=== PATIENT | male | born 1995 | race Caucasian/White ===

== ENCOUNTER 2019-03-07 14:58 | Emergency (ER) | payer BC, MEDICARE ==
[~2019-03-07] VITALS: Ht 185.4 cm; Wt 64.0 kg
[2019-03-07 15:31] VITALS: BP 122/83
--- NOTE | 2019-03-07 15:36 | NUR ---
PT AMB TO ER LOBBY WITH STEADY GAIT. PT [id number]. VSS. BLEEDING CONTROLLED AND DENIES PAIN.
--- NOTE | 2019-03-07 16:05 | NUR ---
PATIENT AMBULATED TO ER BED 4.
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
[2019-03-07] MEDS ORDERED: LIDOCAINE/EPI 2% 1:100000 20 ML VIAL INJ STA (18:38)
--- NOTE | 2019-03-07 18:48 | NUR ---
LIDOCAINE SET AT PT BEDSIDE FOR ERMD TO ADMINISTER
--- NOTE | 2019-03-07 19:12 | NUR ---
RECEIVED REPORT FROM HALINA TOBIN. TRANSFER OF CARE AT THIS TIME.
--- NOTE | 2019-03-07 19:13 | NUR ---
DR. BALL AT BEDSIDE PERFORMING LAC REPAIR.
[2019-03-07 19:38] VITALS: BP 117/80
--- NOTE | 2019-03-07 19:38 | NUR ---
Patient discharged with v/s stable. Written and verbal after care instructions given and explained. Patient alert, oriented and verbalized understanding of instructions. Ambulatory with steady gait. All questions addressed prior to discharge. ID band removed. Patient advised to follow up with PMD. Rx of Ibuprofen, [place] and Keflex given. Patient educated on indication of medication including possible reaction and side effects. Opportunity to ask questions provided and answered.
== END 2019-03-07 19:38 | disposition home or self-care (01) ==
LOC: MED 14:58
DX: S71.112A Laceration without foreign body, left thigh, initial encounter (principal); F12.90 Cannabis use, unspecified, uncomplicated; W27.0XXA Contact with workbench tool, initial encounter; Y93.89 Activity, other specified; Y92.89 Other specified places as the place of occurrence of the external cause; Y99.8 Other external cause status
CPT/HCPCS: 12002; 90471; 90715; 99283; J2001

== ENCOUNTER 2019-03-14 09:46 | Emergency (ER) | payer BC ==
[~2019-03-14] VITALS: Ht 177.8 cm; Wt 64.0 kg
[2019-03-14 09:51] VITALS: BP 122/88
--- NOTE | 2019-03-14 09:55 | NUR ---
pt ambulated to bed 3
--- NOTE | 2019-03-14 10:07 | NUR ---
PT BIB SELF TO THE ED FOR SUTURE REMOVAL. PT HAD SUTURES LAST SUNDAY IN THIS HOSPITAL. SUTURES X7, INTACT. REDNESS AND CRUSTS NOTED ON SUTURE SITE. PT REPORTS HE NOTICED BLOODY DISCHARGE ON THE SITE THIS MORNING. NO PUS OR DISCHARGE NOTED FROM THE SITE NOW. PT TAKING HYDROCODONE, IBUPROFEN AND ANTIBIOTIC SINCE LAST VISIT. REPORTS DIARRHEA SINCE YESTERDAY. D X2 TODAY. DENIES FEVER. DENIES OTHER PROBLEM AT THIS TIME. DENIES PAIN AT THIS TIME.
--- NOTE | 2019-03-14 10:26 | NUR ---
ALAN GEORGE AT [facility] EVALUATING PT.
--- NOTE | 2019-03-14 10:28 | NUR ---
SUTURE REMOVED BY ALAN GEORGE.
[2019-03-14 10:39] VITALS: BP 104/73
--- NOTE | 2019-03-14 10:40 | NUR ---
Patient discharged with v/s stable. Written and verbal after care instructions given and explained. Patient verbalized understanding. Ambulatory with steady gait. All questions addressed prior to discharge. Advised to follow up with PMD. Discharged instructions provided by ER MD.
== END 2019-03-14 10:39 | disposition home or self-care (01) ==
LOC: MED 09:46
DX: S71.111D Laceration without foreign body, right thigh, subsequent encounter (principal); F12.90 Cannabis use, unspecified, uncomplicated; W27.0XXD Contact with workbench tool, subsequent encounter
CPT/HCPCS: 99283